=== PATIENT | female | born 1980 | race American Indian/Alaskan Native ===

== ENCOUNTER 2021-11-02 23:45 | Emergency (ER) | payer SELFPAY ==
[2021-11-02] MEDS ORDERED: IBUPROFEN 800 MG TAB PO ONE (23:53)
[2021-11-02 23:55] VITALS: BP 124/60
--- NOTE | 2021-11-02 23:59 | Emergency Department Report ---
ED General Adult HPI - General Chief complaint: Fever Stated complaint: FEVER/HEADACHE/LEGP Time Seen by Provider: 11/02/21 23:51 - History of Present Illness Initial comments: Patient presents with multiple complaints. She went home from work today and felt as though she was febrile. Her legs were burning. She had a temperature of 100.7. She states that she felt terrible all over and came here for evaluation because she is dehydrated. She has no dysuria. Patient states she just does not feel well. She thinks that she is dehydrated. She states that her sugar is high. She then tells me that she is diabetic but then tells me her hemoglobin A1c is 5.7 and she is not on any medication. Patient denies having a cough but admits to taking NyQuil. She states that she has not had any sick contacts but then tells me that she has sinus congestion and severe allergies. She denies coronavirus exposure. She has had no vaccination. - Related Data Allergies Allergy/AdvReac Type Severity Reaction Status Date / Time No Known Allergies Allergy Verified 11/02/21 23:55 ED Review of Systems ROS: Stated complaint: FEVER/HEADACHE/LEGP Other details as noted in HPI Comment: All other systems reviewed and negative Constitutional: fever (Subjective) Eyes: denies: vision change ENT: denies: ear pain Respiratory: denies: stridor Cardiovascular: denies: palpitations Endocrine: denies: unexplained weight loss Gastrointestinal: denies: hematemesis Genitourinary: denies: hematuria Musculoskeletal: as per HPI Skin: denies: rash Neurological: denies: paresthesias Hematological/Lymphatic: denies: easy bruising ED Past Medical Hx - Past Medical History Previous Medical History?: No - Family History Family history: no significant ED Physical Exam - General Limitations: No Limitations, Other (Pulse ox noted and) General appearance: alert, in no apparent distress, other (Nontoxic) - Head Head exam: Present: atraumatic, normocephalic - Eye Eye exam: Present: normal appearance, EOMI - ENT ENT exam: Present: mucous membranes dry, normal external ear exam - Neck Neck exam: Present: normal inspection. Absent: meningismus - Respiratory Respiratory exam: Present: normal lung sounds bilaterally. Absent: respiratory distress - Cardiovascular Cardiovascular Exam: Present: normal rhythm, tachycardia - GI/Abdominal GI/Abdominal exam: Present: soft. Absent: tenderness - Extremities Exam Extremities exam: Present: normal capillary refill - Back Exam Back exam: Absent: CVA tenderness (R), CVA tenderness (L) - Neurological Exam Neurological exam: Present: alert, oriented X3, CN II-XII intact, reflexes normal. Absent: motor sensory deficit - Psychiatric Psychiatric exam: Present: normal affect, normal mood - Skin Skin exam: Present: warm, dry ED Course Vital Signs 11/02/21 23:49 Temperature 102.5 F H Pulse Rate 112 H Respiratory 18 Rate Blood Pressure 124/60 [Right] O2 Sat by Pulse 97 Oximetry - Reevaluation(s) Reevaluation #1: 11/03/21 06:02 Radiographs were ordered and noted. Patient signed out AGAINST MEDICAL ADVICE. I was unaware. 11/03/21 06:02 11/03/21 06:05 ED Medical Decision Making - Medical Decision Making Patient presented with a viral constellation of symptoms. This seem to be respiratory in nature. There is no GI complaint or abdominal tenderness to suggest peritonitis. Patient did not have any CVA tenderness suggestive of Rodolfo. There was no dysuria frequency. She had no known coronavirus exposure. She did not have an influenza exposure. Patient did not appear to be septic or toxic. She had no meningeal signs. She was treated symptomatically and ref erred for follow-up. Critical Care Time: No Critical care attestation.: If time is entered above; I have spent that time in minutes in the direct care of this critically ill patient, excluding procedure time. ED Disposition Clinical Impression: Viral syndrome Disposition: LEFT AGAINST MEDICAL ADVICE Is pt being admited?: No Condition: Undetermined Referrals: PRIMARY CARE, [Primary Care Provider] - 3-5 Days Forms: AMA Form
--- NOTE | 2021-11-03 00:30 | XRay Report ---
XR chest routine 2V INDICATION / CLINICAL INFORMATION: fever. COMPARISON: None available. FINDINGS: SUPPORT DEVICES: None. HEART /PULMONARY VASCULATURE: No significant abnormality. LUNGS / PLEURA: No significant pulmonary or pleural abnormality. No pneumothorax. ADDITIONAL FINDINGS: No significant additional findings. IMPRESSION: 1. No acute findings. Signer Name: Kyrie Jenkins MD Signed: 11/03/2021 12:26 AM Workstation Name: [id number]
[2021-11-03] MEDS ORDERED: ACETAMINOPHEN 500 MG TAB PO ONE (01:32)
== END 2021-11-03 02:32 | disposition left against medical advice (07) ==
LOC: ED 23:45
DX: B34.9 Viral infection, unspecified (principal)
CPT/HCPCS: 71046; 99283